=== PATIENT | male | born 1940 | race Caucasian/White ===

== ENCOUNTER 2018-01-26 17:54 | Emergency (ER) | payer OTHER ==
[~2018-01-26] VITALS: Ht 177.8 cm; Wt 101.6 kg
[~2018-01-26 17:54] MED LIST: BENAZEPRIL HYDR40 M1 PO; CALCITRIOL0.5 MCG PO; CARVEDILOL6.25 M1 PO; CLEOCIN HCL300 MG PO; FAMOTIDINE20 MG PO; FERROUS SULFAT325 M2 PO; FUROSEMIDE20 MG PO; GLIMEPIRIDE4 M1 PO; LAC PO; LEVAQUIN750 MG PO; LEVOFLOXACIN500 M1 PO; LIPI20 PO; MEDDP PO; PROAIR HFA0.09 MG/A1 IH; TERAZOSIN HCL10 MG PO; WARFARIN PO
[2018-01-26 18:02] VITALS: Ht 177.8 cm; Wt 101.6 kg
[2018-01-26 19:56] VITALS: BP 143/100
== END 2018-01-26 19:56 | disposition home or self-care (01) ==
LOC: ED 17:54
DX: S20.211A Contusion of right front wall of thorax, initial encounter (principal); S60.042A Contusion of left ring finger without damage to nail, initial encounter; I11.0 Hypertensive heart disease with heart failure; I50.9 Heart failure, unspecified; J44.9 Chronic obstructive pulmonary disease, unspecified; E78.00 Pure hypercholesterolemia, unspecified; Z95.0 Presence of cardiac pacemaker; E11.9 Type 2 diabetes mellitus without complications; K21.9 Gastro-esophageal reflux disease without esophagitis; Z88.8 Allergy status to other drugs, medicaments and biological substances; Z88.0 Allergy status to penicillin; W01.198A Fall on same level from slipping, tripping and stumbling with subsequent striking against other object, initial encounter; Y93.89 Activity, other specified; Y92.89 Other specified places as the place of occurrence of the external cause; Y99.8 Other external cause status

== ENCOUNTER 2018-08-15 09:34 | Emergency (ER) | payer OTHER, MEDICAID ==
[~2018-08-15] VITALS: Ht 175.3 cm; Wt 102.1 kg
[2018-08-15 09:44] VITALS: Ht 175.3 cm; Wt 102.1 kg
[2018-08-15 10:59] LABS: BASOPHIL % 0.4 % (0-2); PLATELET COUNT 168 x10^3mcL (130-400); RED CELL DISTRIBUTION WIDTH 13.1 % (11.5-14.5)
[2018-08-15 11:55] LABS: CALCIUM 9.4 mg/dL (8.5-10.1); CHLORIDE SERUM 107 mmol/L (98-107); CREATININE SERUM 1.8 mg/dL (0.7-1.3); GLUCOSE SERUM 170 mg/dL (74-106); POTASSIUM SERUM 4.5 mmol/L (3.5-5.1); SODIUM SERUM 138 mmol/L (136-145)
[2018-08-15 12:03] LABS: ALBUMIN 3.4 g/dL (3.4-5.0); ALKALINE PHOSPHATASE 100 U/L (46-116); ALT/SGPT 26 U/L (16-63); AST/SGOT 20 U/L (15-37); BILIRUBIN TOTAL 0.6 mg/dL (0.20-1.00); TOTAL PROTEIN, SERUM 6.8 g/dL (6.4-8.2); URIC ACID 7.2 mg/dL (3.5-7.2)
[2018-08-15 12:44] VITALS: BP 140/62
== END 2018-08-15 12:44 | disposition home or self-care (01) ==
LOC: ED 09:34
PROVIDERS: Emergency Medicine
DX: M10.9 Gout, unspecified (principal); I12.9 Hypertensive chronic kidney disease with stage 1 through stage 4 chronic kidney disease, or unspecified chronic kidney disease; E66.9 Obesity, unspecified; J44.9 Chronic obstructive pulmonary disease, unspecified; E80.0 Hereditary erythropoietic porphyria; E78.00 Pure hypercholesterolemia, unspecified; E11.22 Type 2 diabetes mellitus with diabetic chronic kidney disease; N18.3 Chronic kidney disease, stage 3 (moderate); Z95.810 Presence of automatic (implantable) cardiac defibrillator; Z68.33 Body mass index [BMI] 33.0-33.9, adult; Z98.84 Bariatric surgery status; Z88.6 Allergy status to analgesic agent; Z88.0 Allergy status to penicillin; Z90.49 Acquired absence of other specified parts of digestive tract
CPT/HCPCS: 36415; 82962; Q0092